=== PATIENT | female | born 1990 | race Caucasian/White ===

== ENCOUNTER → 2018-07-20 | Outpatient (CLI) | payer BC ==
[2018-07-20 13:37] LABS: HEMATOCRIT 32.3 % (36.0-47.0); HEMOGLOBIN 10.6 g/dl (12.0-15.5); MEAN CORPUSCULAR HEMOGLOBIN 31.1 pg (27.0-33.0); MEAN CORPUSCULAR HGB CONC 32.8 g/dl (32.0-36.5); MEAN CORPUSCULAR VOLUME 94.7 fl (80.0-96.0); PLATELET COUNT, AUTOMATED 362 10^3/uL (150-450); RED BLOOD COUNT 3.41 10^6/uL (4.00-5.40); WHITE BLOOD COUNT 11.8 10^3/uL (4.0-10.0)
== END ==
LOC: M WUC 10:25
PROVIDERS: ATTEND Nurse Practitioner Women's Health
DX: Z34.83 Encounter for supervision of other normal pregnancy, third trimester (principal); Z36.89 Encounter for other specified antenatal screening; Z3A.28 28 weeks gestation of pregnancy

== ENCOUNTER → 2020-06-03 | Outpatient (REF) | payer OTHER ==
[2020-06-03 17:14] LABS: HEMATOCRIT 37.5 % (36.0-47.0); HEMOGLOBIN 12.2 g/dl (12.0-15.5); MEAN CORPUSCULAR HEMOGLOBIN 30.7 pg (27.0-33.0); MEAN CORPUSCULAR HGB CONC 32.5 g/dl (32.0-36.5); MEAN CORPUSCULAR VOLUME 94.2 fl (80.0-96.0); PLATELET COUNT, AUTOMATED 342 10^3/uL (150-450); RED BLOOD COUNT 3.98 10^6/uL (4.00-5.40); WHITE BLOOD COUNT 10.3 10^3/uL (4.0-10.0)
[2020-06-03 17:56] LABS: HCG, SERUM QUANTITATIVE 19876 MIU/ML
[2020-06-03 18:14] LABS: HEPATITIS C VIRUS ABY INDEX 0.2 INDEX (<0.8)
[2020-06-03 18:15] LABS: HIV 1&2 SCREEN CENTAUR NEGATIVE (NEGATIVE)
== END ==
LOC: M LAB REF 16:29
PROVIDERS: ATTEND Advanced Practice Midwife
DX: O36.80X0 Pregnancy with inconclusive fetal viability, not applicable or unspecified (principal); Z3A.00 Weeks of gestation of pregnancy not specified

== ENCOUNTER → 2020-09-19 | Outpatient (CLI) | payer OTHER | LOC: M LAB 08:49 | PROVIDERS: ATTEND Obstetrics & Gynecology | DX: O99.810 Abnormal glucose complicating pregnancy (principal) ==

== ENCOUNTER → 2020-11-04 | Outpatient (REF) | payer OTHER | LOC: M SFHCWAGY 09:59 | PROVIDERS: ATTEND Advanced Practice Midwife | DX: Z34.83 Encounter for supervision of other normal pregnancy, third trimester (principal); Z3A.36 36 weeks gestation of pregnancy ==

== ENCOUNTER → 2020-11-25 | Outpatient (CLI) | payer OTHER | LOC: M LABSMTC 09:42 | PROVIDERS: ATTEND Specialist | DX: Z20.822 Contact with and (suspected) exposure to COVID-19 (principal); Z3A.39 39 weeks gestation of pregnancy ==

== ENCOUNTER 2020-12-01 04:16 | Inpatient (IN) | payer OTHER ==
[~2020-12-01] VITALS: Ht 167.6 cm; Wt 79.6 kg
[2020-12-01] VITALS (17 sets, daily range): BP systolic 87–176; BP diastolic 54–92
[2020-12-01] MEDS ORDERED: TUMS750C5 PO (04:37)
[2020-12-01] MEDS ORDERED: MULTTAB20 PO (04:37)
[2020-12-01] MEDS ORDERED: SING10TA32 PO (04:38)
[2020-12-01] MEDS ORDERED: ZYRTTAB8 PO (04:38)
[2020-12-01 06:24] LABS: HEMATOCRIT 30.3 % (36.0-47.0); HEMOGLOBIN 9.6 g/dl (12.0-15.5); MEAN CORPUSCULAR HGB CONC 31.7 g/dl (32.0-36.5); MEAN CORPUSCULAR VOLUME 85.1 fl (80.0-96.0); PLATELET COUNT, AUTOMATED 383 10^3/uL (150-450); RED BLOOD COUNT 3.56 10^6/uL (4.00-5.40); WHITE BLOOD COUNT 12.3 10^3/uL (4.0-10.0)
--- NOTE | 2020-12-01 06:30 | HPEPDOC ---
Obstetrical History & Physical General Date of Admission Dec 01, 2020 at 05:41 History of Present Illness 30-year-old 5 para 2-1-1-2 female at 39-6/7 weeks gestation by LMP consi stent with 14-week ultrasound (EDC equals 12/02/2020) presents with leakage of fluid per vagina at 3 AM on the day of admission. She began to have contractions which are increased. She continued to leak fluid. No bleeding. Good movement. 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 cesaren at 30 weeks, demise 3. TSVD med hx: none surg hx: 1. D+C 2. 3. bunion Social History Marital Status: Family situation: Spouse/partner home Psychosocial History: No pertinent psych hx Allergies Coded Allergies: No Known Allergies (Unverified , 12/01/20) Medications Scheduled Cetirizine HCl/Pseudoephedrine (Zyrtec-D Tablet) 1 Each Tab.er.12h, 1 TAB PO DAILY Montelukast Sodium (Singulair) 10 Mg Tablet, 1 TAB PO DAILY No122/Iron/Folic Acid ( Multi Tablet) 1 Each Tablet, 1 TAB PO DAILY Miscellaneous Medications Calcium Carbonate (Tums) 300 Mg Tab.chew, 750 MG PO Physical Examination Physical Examination GENERAL: Alert and oriented times three. BREAST: . ABDOMEN: Gravid and non-tender to touch. FETUS: Is vertex (VTX) by sterile vaginal examination (SVE), fetus is vertex (VTX) by Ber[place]ane. HEART RATE: Regular rate and rhythm. LUNGS: Clear to auscultation (CTA). EXTREMITIES: No edema. No clonus. Deep tendon reflexes (DTRs) + . Vital Signs/I&O Vital Signs Date Time Temp Pulse Resp B/P (MAP) Pulse Ox O2 Delivery O2 Flow Rate FiO2 12/01/20 04:33 98.1 71 16 134/72 (92) Laboratory Data 24H LABS Laboratory Tests 2 12/01/20 05:51: Serology Scanned Report Hepatitis B Testing 12/01/20 05:56: CBC/BMP Pertinent Laboratoy Data Blood Type: AB+ Group B Streptococcus: Negative Vaginal Examination Dilation: 3 cm Effacement: 80% Station: -1 Cervical Consistency: Soft Cervical Position: Posterior Presentation: Cephalic presentation Assessment Variability: Moderate Accelerations: Positive Decelerations: None Tocometer Contractions: Yes Frequency: regular Duration: less than 60 seconds Assessment/Plan Assessment Pt is a 30-year-old (G)5 para (P)2-1-1-2 at 39+6 weeks by LMP c/w 14- week ultrasound presents with spontaneous rupture membranes in early labor. 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 Diet: reg. Group B Streptococcus (GBS) negative. Labs and intravenous (IV) per unit protocol. Anticipate [normal spontaneous delivery () Patient is aware of risks of . C-S as appropriate. MARINA ARAUJO MD Dec 01, 2020 06:30
[2020-12-01] MEDS ORDERED: LR 1,000 ML IV SCH (15:00)
[2020-12-01] MEDS ORDERED: OXYTOCIN DRIP 30 UNITS in IV 1 EA IV SCH (15:00)
--- NOTE | 2020-12-01 15:02 | IPNPDOC ---
Obstetrical Progress Note Date of Service Dec 01, 2020 Subjective Reports she feels her contractions but reports she hasn't been leaking anymore fluid. Objective Vital Signs Date Time Temp Pulse Resp B/P (MAP) Pulse Ox O2 Delivery O2 Flow Rate FiO2 12/01/20 14:46 97.1 88 18 119/69 (86) 12/01/20 10:37 Room Air Assessment Heart Rate (FHR): 130 Variability: Moderate Accelerations: Positive Decelerations: None Heart Rate Tracing: Category I Tocometer Contractions: Yes Frequency: other (2- 7 minutes.) Sterile Vaginal Examination Dilation: 5 cm Effacement (%): 80% Station: -3 Cervical Consistency: Soft Cervical Position: Anterior Postion/Presentation: Cephalic presentation Assessment and Plan Status: Reassuring Group B Streptococcus: Negative Anticipate: Vaginal Delivery Additional Comments Reviewed options with patient. Recommend starting IV Pitocin now to get head more engaged as she has a bulging bag of fluid and head is ballotable. Once head is engaged we will break her water and turn off IV Pitocin. Patient agrees with plan. RADHA WILCOX CNM Dec 01, 2020 15:02
--- NOTE | 2020-12-01 17:57 | IPNPDOC ---
Obstetrical Progress Note Date of Service Dec 01, 2020 Subjective reports her contractions are more intense. Objective Vital Signs Date Time Temp Pulse Resp B/P (MAP) Pulse Ox O2 Delivery O2 Flow Rate FiO2 12/01/20 17:03 97.8 87 18 132/60 (84) 12/01/20 10:37 Room Air Assessment Heart Rate (FHR): 130 Variability: Moderate Accelerations: Positive Decelerations: None Heart Rate Tracing: Category I Tocometer Contractions: Yes Frequency: regular Sterile Vaginal Examination Dilation: 8 cm Effacement (%): 100% Station: -1 Postion/Presentation: Cephalic presentation Assessment and Plan Status: Reassuring Group B Streptococcus: Negative Anticipate: Vaginal Delivery Additional Comments IV Pitocin was at 8 mu/min. Pitocin turned off per request. Will wait to rupture or wait for spontaneous rupture. Dr. Patrick notified of patient's change and active labor status. RADHA WILCOX CNM Dec 01, 2020 17:57
[2020-12-01] MEDS ORDERED: ANUSOL HC CREAM 30GM TOP PRN (18:50)
[2020-12-01] MEDS ORDERED: ACETAMINOPHEN 500 MG TAB PO PRN (18:50)
[2020-12-01] MEDS ORDERED: ACETAMINOPHEN TAB 650MG DOSE (2X325MG) PO PRN (18:50)
[2020-12-01] MEDS ORDERED: MEASLES,MUMPS,RUBELLA VACCINE INJ (MMR-II) (90707) SC SCH (18:50)
[2020-12-01] MEDS ORDERED: METHYLERGONOVINE MALEATE 0.2 MG/ML VIAL (J2210) IM ONE (18:50)
[2020-12-01] MEDS ORDERED: RHOGAM 300 MCG (1500 IU) INJ (J2790) IM SCH (18:50)
[2020-12-01] MEDS ORDERED: MOM 30ML SUSPENSION UDC PO PRN (18:50)
[2020-12-01] MEDS ORDERED: IBUPROFEN 600MG TAB PO PRN (18:50)
[2020-12-01] MEDS ORDERED: DIBUCAINE 1% OINTMENT 30GM TOP PRN (18:50)
--- NOTE | 2020-12-01 18:51 | DNPDOC ---
[facility] Delivery Note Delivery Note DATE OF DELIVERY: 11/2820 at 1825 PREDELIVERY DIAGNOSIS: 39-6/7 weeks' gestation and labor. POST DELIVERY DIAGNOSIS: Delivered. PROCEDURE: Vaginal after section. LAWN TECHNICIAN: Radha Quinn CNM, [place] ANESTHESIA: none. ESTIMATED BLOOD LOSS: 350 mL. FINDINGS: 10 pounds 7 ounces; 4740 grams; male , Score 8/9, macrosomia, successful . DELIVERY SUMMARY: Kena is a 30-year-old female who is now a that pr esented to L&D with spontaneous rupture. She requested to have a TOLAC after already having had a successful . Her labor was augmented with IV Pitocin. She progressed to fully dilated at 1808 and pushed to a living male in the JESS position with restitution to ROT. The anterior shoulder delivered with gentle downward traction and the corpus followed. The baby was placed [id number] active and crying with stimulation. The cord was clamped after a minute and cut by the FOB. The placenta delivered spontaneously and intact at 1831. Uterine hemostasis was achieved via rapid infusion of IV Pitocin and fundal massage. The vagina, cervix, and perineum was inspected and found to be intact. A dose of Methergine was given due to the size of the . The mom plans to breastfeed. They are naming him Buddy. All counts of instruments and sponges are correct. RADHA QUINN CNM Dec 01, 2020 18:51
[2020-12-01] MEDS: IBUPROFEN 800 MG TAB PO PRN (19:03)
[2020-12-02] MEDS: IBUPROFEN 800 MG TAB PO PRN ×2 (05:49→19:40)
--- NOTE | 2020-12-02 05:51 | IPNPDOC ---
Progress Note Date of Service: Dec 02, 2020 Day#: 1 Progress Note SUBJECT: Kena is a who had an of a 10 lb 7 oz male. She reports she is doing well. She is ambulating, voiding, and eating without difficulty. She is and reports no issues. OBJECTIVE: VITAL SIGNS: Within normal limits, afebrile. Alert and oriented times three. Breath sounds clear to auscultation. Abdomen: Fundus firm at U-1. Soft, NTTP. Moderate lochia. ASSESSMENT: Day 1 PLAN: 1. Continue supportive nursing care. 2. Anticipate discharge to home tomorrow. VS, I&O, 24H, Fishbone Vital Signs/I&O Vital Signs Date Time Temp Pulse Resp B/P (MAP) Pulse Ox O2 Delivery O2 Flow Rate FiO2 12/01/20 20:25 98.1 77 18 120/56 (77) 12/01/20 10:37 Room Air I&O- Last 24 Hours up to 6 AM 12/02/20 06:00 Output Total 350 ml Balance -350 ml Laboratory Data 24H LABS Laboratory Tests 2 12/01/20 05:51: Serology Scanned Report Hepatitis B Testing 12/01/20 05:56: Nucleated Red Blood Cells % (auto) 0.0, Syphilis Serology NONREACTIVE CBC/BMP Laboratory Tests 12/01/20 05:56 RADHA WILCOX CNM Dec 02, 2020 05:51
[2020-12-02 06:00] VITALS: BP 118/65
[2020-12-02] MEDS: PRENATAL VITAMINS CHEWABLE TABLET PO SCH (08:18)
[2020-12-02] MEDS: DOCUSATE SODIUM 100MG CAPSULE PO PRN ×2 (08:18→19:40)
[2020-12-02 17:53] VITALS: BP 117/65
[2020-12-02 22:00] VITALS: BP 111/57
[2020-12-03 06:00] VITALS: BP 100/55
[2020-12-03] MEDS: PRENATAL VITAMINS CHEWABLE TABLET PO SCH (08:49)
[2020-12-03] MEDS ORDERED: IBUP80TA PO (10:04)
[2020-12-03] MEDS ORDERED: DOK1CAP7 PO (10:04)
[2020-12-03] MEDS ORDERED: PRENCHW PO (10:04)
[2020-12-03] MEDS ORDERED: FERR325T3 PO (10:04)
--- NOTE | 2020-12-03 10:13 | IPNPDOC ---
Progress Note Date of Service: Dec 03, 2020 Day#: 2 Progress Note PPD 2 SUBJECT: Kena is a 30yo [id number] s/p uncomplicated at term on 12/01, doing well day #2. She has been ambulating, voiding spontaneously without issue and tolerating regular diet. Breast feeding without issue. Reports lochia is like a normal period. No f/c/n/v/CP/SOB. OBJECTIVE: VITAL SIGNS: Within normal limits, afebrile. Alert and oriented times three. Abdomen: Fundus firm at U-2. Soft, NTTP. Extremities: no pain with palpation of calves ASSESSMENT: Kena is a 30yo [id number] s/p uncomplicated at term on 12/01, doing well day #2. Vitals within normal limits, afebrile, hemodynamically stable with no evidence of infection. PLAN: 1. discharge to home today 2. Tylenol and Motrin for pain. Also Rx'ed colace, PNV and ferrous sulfate 3. Encourage breast feeding and ambulation. 4. Regular diet 5. discussed return precautions 6. 6wk PP visit 7. plans to use NFP for contraception 8. vaginal rest no heavy lifting 6 weeks Jigna Wright MD VS, I&O, 24H, Fishbone Vital Signs/I&O Vital Signs Date Time Temp Pulse Resp B/P (MAP) Pulse Ox O2 Delivery O2 Flow Rate FiO2 12/03/20 06:00 98.0 64 18 100/55 (70) 95 Room Air Jigna Wright MD Dec 03, 2020 10:13
--- NOTE | 2020-12-03 10:26 | DS.PDOC ---
Discharge Summary General Date of Admission Dec 01, 2020 at 05:41 Date of Discharge Dec 03, 2020 Discharge Summary PROCEDURES PERFORMED DURING STAY: vaginal after section ADMITTING DIAGNOSES: 1. Pre-labor rupture of membranes at term DISCHARGE DIAGNOSES: 1. Pre-labor rupture of membranes at term COMPLICATIONS/CHIEF COMPLAINT: LABOR. HISTORY OF PRESENT ILLNESS/HOSPITAL COURSE: Kena is a 30yo [id number] s/p uncomplicated at term on 12/01, doing well day #2. She has had a benign course and at time of discharge vitals are within normal limits, afebrile, hemodynamically stable with no evidence of infection. DISCHARGE MEDICATIONS: Please see below. ALLERGIES: Please see below. PHYSICAL EXAMINATION ON DISCHARGE: VITAL SIGNS: Within normal limits, afebrile. Alert and oriented times three. Abdomen: Fundus firm at U-2. Soft, NTTP. Extremities: no pain with palpation of calves LABORATORY DATA: Please see below. DISCHARGE PLAN/INSTRUCTIONS: 1. discharge to home today 2. Tylenol and Motrin for pain. Also Rx'ed colace, PNV and ferrous sulfate 3. Encourage breast feeding and ambulation. 4. Regular diet 5. discussed return precautions 6. 6wk PP visit 7. plans to use NFP for contraception 8. vaginal rest no heavy lifting 6 weeks DISCHARGE CONDITION: Stable TIME SPENT ON DISCHARGE: Greater than 20 minutes. Vital Signs/I&Os Vital Signs Date Time Temp Pulse Resp B/P (MAP) Pulse Ox O2 Delivery O2 Flow Rate FiO2 12/03/20 06:00 98.0 64 18 100/55 (70) 95 Room Air Discharge Medications Scheduled Cetirizine HCl/Pseudoephedrine (Zyrtec-D Tablet) 1 Each Tab.er.12h, 1 TAB PO DAILY, (Reported) Ferrous Sulfate (Ferrous Sulfate) 325 Mg Tablet.dr, 1 TAB PO DAILY Montelukast Sodium (Singulair) 10 Mg Tablet, 1 TAB PO DAILY, (Reported) Pnv No.118/Iron Fumarate/FA ( 19 Chewable Tablet) 1 Each Tab.chew, 1 TAB PO DAILY No122/Iron/Folic Acid ( Multi Tablet) 1 Each Tablet, 1 TAB PO DAILY, (Reported) Scheduled PRN Docusate Sodium (Dok) 100 Mg Capsule, 100 MG PO BIDP PRN for CONSTIPATION Ibuprofen (Ibuprofen) 800 Mg Tablet, 800 MG PO Q8HP PRN for PAIN LEVEL 6-10 Miscellaneous Medications Calcium Carbonate (Tums) 300 Mg Tab.chew, 750 MG PO, (Reported) Allergies Coded Allergies: No Known Allergies (Unverified , 12/01/20) Jigna Wright MD Dec 03, 2020 10:26
== END 2020-12-03 12:25 | disposition home or self-care (01) | DRG 807 ==
LOC: M LDO 04:16 → M LDI 05:41 → M OBS 20:20
PROVIDERS: ADMIT Specialist; ATTEND Specialist
PROC: 10E0XZZ Delivery of Products of Conception, External Approach (ICD-10-PCS; principal; 2020-12-01)
DX: O34.211 Maternal care for low transverse scar from previous cesarean delivery (principal); Z37.0 Single live birth; Z3A.39 39 weeks gestation of pregnancy; O36.63X0 Maternal care for excessive fetal growth, third trimester, not applicable or unspecified

== ENCOUNTER → 2021-03-19 | Outpatient (REF) | payer OTHER ==
[~2021-03-19] MED LIST: DOK1CAP4 PO; FERR325T3 PO; IBUP80TA PO; MULTTAB20 PO; PRENCHW PO; SING10TA32 PO; TUMS750C5 PO; ZYRTTAB8 PO
== END ==
LOC: M SFHCWAGY 13:17
PROVIDERS: ATTEND Advanced Practice Midwife
DX: Z12.4 Encounter for screening for malignant neoplasm of cervix (principal)
CPT/HCPCS: 87624; G0123

== ENCOUNTER → 2022-08-27 | Outpatient (CLI) | payer OTHER ==
[~2022-08-27] MED LIST changes: +MONT-5 PO; -SING10TA32 PO
[2022-08-27 17:44] LABS: HEMATOCRIT 38.5 % (36.0-47.0); HEMOGLOBIN 12.6 g/dl (12.0-15.5); MEAN CORPUSCULAR HEMOGLOBIN 31.2 pg (27.0-33.0); MEAN CORPUSCULAR HGB CONC 32.7 g/dl (32.0-36.5); MEAN CORPUSCULAR VOLUME 95.3 fl (80.0-96.0); PLATELET COUNT, AUTOMATED 360 10^3/uL (150-450); RED BLOOD COUNT 4.04 10^6/uL (4.00-5.40); WHITE BLOOD COUNT 10.5 10^3/uL (4.0-10.0)
[2022-08-27 18:45] LABS: HIV 1&2 SCREEN CENTAUR NEGATIVE (NEGATIVE)
[2022-08-27 18:52] LABS: HEPATITIS C VIRUS ABY INDEX 0.1 INDEX (<0.8)
== END ==
LOC: M PLALAB 13:53
PROVIDERS: ATTEND Advanced Practice Midwife
DX: O34.211 Maternal care for low transverse scar from previous cesarean delivery (principal); Z3A.00 Weeks of gestation of pregnancy not specified

== ENCOUNTER → 2022-08-27 | Outpatient (REF) | payer OTHER ==
[2022-08-27 20:15] LABS: GC DNA AMPLIFICATION NEGATIVE (NEGATIVE)
== END ==
LOC: M PLALAB 13:53
PROVIDERS: ATTEND Advanced Practice Midwife
DX: O34.211 Maternal care for low transverse scar from previous cesarean delivery (principal); Z3A.00 Weeks of gestation of pregnancy not specified

== ENCOUNTER → 2022-11-26 | Outpatient (CLI) | payer OTHER ==
[2022-11-26 11:39] LABS: HEMATOCRIT 31.8 % (36.0-47.0); HEMOGLOBIN 10.2 g/dl (12.0-15.5); MEAN CORPUSCULAR HEMOGLOBIN 29.8 pg (27.0-33.0); MEAN CORPUSCULAR HGB CONC 32.1 g/dl (32.0-36.5); PLATELET COUNT, AUTOMATED 382 10^3/uL (150-450); RED BLOOD COUNT 3.42 10^6/uL (4.00-5.40); WHITE BLOOD COUNT 12.3 10^3/uL (4.0-10.0)
[2022-11-26 13:44] LABS: GC DNA AMPLIFICATION NEGATIVE (NEGATIVE)
== END ==
LOC: M PLALAB 07:25
PROVIDERS: ATTEND Obstetrics & Gynecology
DX: Z34.92 Encounter for supervision of normal pregnancy, unspecified, second trimester (principal)

== ENCOUNTER → 2023-01-25 | Outpatient (REF) | payer OTHER | LOC: M PLALAB 07:26 | PROVIDERS: ATTEND Advanced Practice Midwife | DX: Z34.80 Encounter for supervision of other normal pregnancy, unspecified trimester (principal) ==